=== PATIENT | male | born 1950 | race African-American/Black ===

== ENCOUNTER 2016-07-20 10:25 | Emergency (ER) | payer OTHER, MEDICARE ==
[~2016-07-20] VITALS: Ht 180.3 cm; Wt 120.1 kg
[~2016-07-20 10:25] MED LIST: ALLOPURINOL300 MG PO; AMARYL1 MG PO; ASPIRIN81 M2 PO; BENAZEPRIL HCL10 MG PO; CARDURA8 MG PO; CIALIS20 MG PO; COLCRYS0.6 MG PO; COZAAR100 MG PO; CRESTOR10 MG PO; DEPO-TESTOS200 MG/ML IM; DONEPEZIL HCL10 MG PO; DRISDOL50000 UNIT PO; FINASTERIDE5 MG PO; FLEXERIL10 MG PO; FLONASE16 G1 BOTH NARES; HYDROCODON-ACE1 EACH PO; JANUVIA100 MG PO; LEVAQUIN500 MG PO; LEVOTHYROXINE200 MC1 PO; LEVOTHYROXINE88 MCG PO; LIPITOR10 MG PO; LYRICA75 MG PO; NORVASC10 MG PO; PERCOCET 10/1 TABLET PO; PERCOCET 5/31 TABLET PO; PRILOSEC20 MG PO; PROSCAR5 MG PO; SYNTHROID300 MCG PO; TAMSULOSIN HCL0.4 MG PO; TRAMADOL HCL50 MG PO; TYLENOL EXTRA500 MG PO; ULTRAM50 MG PO; ZOFRAN ODT4 MG PO; ZOFRAN4 MG PO
[2016-07-20 11:23] LABS: MCH 27.9 PG (29.0-34.0); MCHC 34.5 G/DL (30.0-36.0); MEAN PLAT.VOLUME 9.8 uM^3 (9.0-12.4); PLATELET COUNT 195 K/uL (156-360); RBC DIS.WIDTH-CV 13.2 % (11.8-14.6); RBC DIS.WIDTH-SD 38.5 % (39-53); RED BLOOD COUNT 4.69 M/uL (4.00-5.50); WHITE BLOOD COUNT 7.7 K/uL (4.1-10.2)
[2016-07-20 11:44] LABS: TROP-I INTERPRETATION NEGATIVE; TROPONIN-I < 0.01 ng/mL (0.0-0.30)
[2016-07-20 12:05] LABS: ANION GAP 6 MEQ/L (2-14); CHLORIDE 108 MEQ/L (99-109); POTASSIUM 4.5 MEQ/L (3.7-5.4); SAMPLE HEMOLYSIS CHECK 0; SAMPLE ICTERIC CHECK 0; SAMPLE LIPEMIA CHECK 0; SODIUM 138 MEQ/L (136-147)
[2016-07-20 12:11] LABS: GFR ESTIMATE (CALCULATED) > 59 mL/min/; GLUCOSE 189 mg/dL (70-99); UREA NITROGEN (BUN) 18 mg/dL (9-23)
[2016-07-20] MEDS ORDERED: LEVO-T175 MCG PO (12:12)
[2016-07-20] MEDS ORDERED: GABAPENTIN100 MG PO (12:13)
[2016-07-20] MEDS ORDERED: JANUVIA100 MG PO (12:13)
[2016-07-20] MEDS ORDERED: GLIMEPIRIDE4 MG PO (12:14)
[2016-07-20 12:40] VITALS: BP 111/84
== END 2016-07-20 12:41 | disposition home or self-care (01) ==
LOC: EME 10:25
DX: R00.2 Palpitations (principal); R07.89 Other chest pain; E11.9 Type 2 diabetes mellitus without complications; Z79.84 Long term (current) use of oral hypoglycemic drugs; E78.5 Hyperlipidemia, unspecified; I12.9 Hypertensive chronic kidney disease with stage 1 through stage 4 chronic kidney disease, or unspecified chronic kidney disease; N18.3 Chronic kidney disease, stage 3 (moderate); Z87.442 Personal history of urinary calculi; M10.9 Gout, unspecified; Z88.5 Allergy status to narcotic agent; Z88.8 Allergy status to other drugs, medicaments and biological substances; Z88.6 Allergy status to analgesic agent
CPT/HCPCS: 71020; 80048; 84484; 85027; 93005; 99281; 99284

== ENCOUNTER → 2016-08-24 | Outpatient (CLI) | payer OTHER, MEDICARE ==
[~2016-08-24] MED LIST changes: +GABAPENTIN100 MG PO; +GLIMEPIRIDE4 MG PO; +LEVO-T175 MCG PO
== END | disposition home or self-care (01) ==
LOC: EKG 13:00
DX: I51.7 Cardiomegaly (principal); R94.31 Abnormal electrocardiogram [ECG] [EKG]; E11.9 Type 2 diabetes mellitus without complications
CPT/HCPCS: 93306

== ENCOUNTER → 2016-08-25 | Outpatient (CLI) | payer OTHER, MEDICARE | END | disposition home or self-care (01) | LOC: NUC 08:22 | DX: R07.9 Chest pain, unspecified (principal); E11.9 Type 2 diabetes mellitus without complications | CPT/HCPCS: 78452; 93017; A9500; J2785 ==